=== PATIENT | male | born 1985 | race Caucasian/White ===

== ENCOUNTER 2021-11-26 09:09 | Inpatient (IN) | payer MEDICAID, SELFPAY ==
--- NOTE | ~2021-11-26 | CT_ITS ---
EXAMINATION: CT ABDOMEN AND PELVIS WITHOUT CONTRAST CLINICAL INFORMATION: 36-year-old male with abdominal pain and distention. COMPARISON: Abdomen ultrasound from 11/26/2021. TECHNIQUE: Multidetector volumetric imaging was performed from the superior aspect of the liver through the pubic symphysis. Sagittal and coronal reformatted images were obtained on the technologist's workstation. This CT examination was performed using dose optimization techniques as appropriate, variously including the following: *Automated exposure control *Adjustment of mA and/or kV according to patient size (this includes techniques or standardized protocols for targeted exams where dose is matched to indication/reason for exam; i.e. extremities or head) *Use of iterative reconstruction technique DLP: 718 mGy-cm FINDINGS: LUNG BASES: Unremarkable. LIVER: Hepatomegaly. The right hepatic lobe is approximately 24 cm in craniocaudal dimension. Liver parenchyma is diffusely hypodense, consistent with steatohepatitis. Recommend correlation with liver function tests. No focal liver lesion. GALLBLADDER AND BILIARY TREE: Gallbladder is physiologically distended and without radiopaque stones. No dilated bile ducts. PANCREAS: Normal. No edema, pancreatic ductal dilatation or mass. SPLEEN: Normal. ADRENAL GLANDS: Normal. KIDNEYS AND URETERS: The kidneys have normal size and cortical thickness. No perinephric edema or fluid collection. No urolithiasis or hydroureteronephrosis. BLADDER: Normal. No calculi or wall thickening. BOWEL AND PERITONEUM: No dilated bowel loops. The colon is suboptimally evaluated due to lack of distention. Mild diffuse edema of the colonic wall is suspected. Moderate volume of free fluid is present in the abdomen and pelvis. No pneumoperitoneum. ABDOMINAL WALL: Mild edema of subcutaneous tissues of the abdominal wall. Minimal protrusion of fat into the umbilicus. VASCULATURE: Minimal atherosclerotic calcification of the abdominal aorta without aneurysm. Inferior vena cava is normal. Splenic, portal and hepatic veins are unremarkable. No venous thrombosis. LYMPH NODES: A common hepatic lymph node is slightly enlarged, 1 cm short axis dimension, likely reactive to the hepatic disease. No pathologic sized retroperitoneal, iliac or inguinal lymph nodes. PELVIC VISCERA: Prostate gland is unremarkable. SKELETAL: No suspicious bone lesions. CT/CT abdomen pelvis wo con IMPRESSION: * Hepatomegaly, steatohepatitis and anasarca with moderate volume of ascites. * Mild edematous thickening of the colonic wall is suspected in this patient with liver disease, and the suspected wall thickening could be secondary to hypoproteinemia/anasarca. The differential diagnosis might include portal hypertension associated colopathy, but portal veins are not dilated and there are no appreciable varices to significantly raise suspicion for underlying portal hypertension.
--- NOTE | ~2021-11-26 | US_ITS ---
EXAMINATION: US ABDOMEN LIMITED CLINICAL INFORMATION: Abdominal distention and pain.. COMPARISON: None TECHNIQUE: Real-time imaging of the abdomen evaluating for ascites. US/US abdomen limited FINDINGS/IMPRESSION: Minimal amount of ascites noted within the right lower quadrant with trace ascites noted within otherwise abdominal quadrants. There is no safe window to perform a paracentesis.
[2021-11-26 09:16] VITALS: BP 146/85; PULSE 97; RESP 18; TEMP 36.6; O2SAT 98; BMI 30.1
[2021-11-26 09:59] LABS: INTERNATIONAL NORM RATIO 1.2 (0.9-1.1); Prothrombin Time 13.3 SEC (10.0-13.1)
[2021-11-26 10:00] LABS: Ammonia 55 umol/L (13-55)
--- NOTE | 2021-11-26 10:02 | ED.ABDPAIN ---
HPI - Abdominal Pain General Chief Complaint: Abdominal Pain Stated Complaint: abd swelling and pain Time Seen by Provider: 11/26/21 09:34 Source: patient Mode of arrival: ambulatory Limitations: no limitations History of Present Illness HPI narrative: patient presents emergency department for evaluation of abdominal pain and distension. He states this is been ongoing for 2 weeks but significantly worse today. He has associated nausea and vomiting. He states he has not had any solid oral intake in the past 60 days. He additionally has associated diarrhea without blood and not black in color, states it is just water . He states he is a daily alcohol drinker typically drinking 15-20 nips a day, yesterday was only able to drink 3 nips due to the pain. He does endorse a history of withdrawal seizures. He states that 1 month ago he was seen at [facility] due to bilateral lower extremity edema, states he received Lasix IV while in the emergency department and was told it was due to my liver . he does not have a primary care provider and has had no further follow-up. States that the swelling has actually significantly improved. denies chest pain, palpitations, shortness of breath, difficulty breathing, dysuria, inability to urinate, numbness or tingling of the extremities. Related Data Home Medications Medication Instructions Recorded Confirmed methadone 10 mg/mL oral 132 mg PO DAILY 11/26/21 concentrate (Methadose) Allergies Allergy/AdvReac Type Severity Reaction Status Date / Time No Known Allergies Allergy Verified 11/26/21 09:46 Review of Systems Review of Systems Constitutional : No Weight loss, No Fever, No Chills ENT/Mouth :? No sore throat, No Rhinorrhea Eyes: No Swelling, No Redness Cardiovascular : No Chest Pain, No SOB, Positive Edema Respiratory : No Cough, No Sputum, No Wheezing Gastrointestinal : Positive Nausea, Positive Vomiting, positive Diarrhea, positive abdominal pain, No Hematochezia, No Melena Genitourinary : No Dysuria, No Urinary Frequency, No Hematuria, No Urgency? Musculoskeletal : No joint pain, No Myalgias, No Joint Swelling Skin : No Skin Lesions, No rash Neuro : No Weakness, No Numbness, No Dizziness, No Headache Psych : No Anxiety/Panic, No Depression Heme/Lymph: No Bruising, No Lymphadenopathy Endocrine : No Polyuria, No Polydipsia Yes all other systems are reviewed and are negative [facility] Past Medical History Attestation statement: The following information was validated with the patient. Source: old records reviewed Social History Social History (Updated 11/26/21 @ 17:08 by Victor Manuel Castillo MD) Patient Tobacco Use Status: Current everyday Tobacco user Advance Directives: No Advance Directives Information Provided: No Physical Exam ED Vital Signs: Vital Signs - 24 hr 11/26/21 09:16 11/26/21 11:30 11/26/21 16:00 Temperature 98 F 98.7 F Pulse Rate 97 87 96 Respiratory Rate 18 16 16 Blood Pressure 146/85 H 135/72 143/94 H Pulse Oximetry 98 95 94 Oxygen Delivery Method Room Air Room Air Room Air BMI result Body Mass Index 30.1 Appearance: Alert.?Oriented to person, place and time. No acute distress.?Normal affect. Eyes: Pupils equal, round and reactive to light. sclera mildly icterus? ENT: Pharynx normal.?? Neck: Normal inspection.? Neck supple.?? CVS: Heart sounds normal. Normal heart rate and rhythm.? Pulses normal.?? Respiratory: No respiratory distress.? Lung sounds clear to auscultation bilaterally?? Abdomen: distended, tender upon palpation. hypoactive bowel sounds. No pulsatile mass.?? Skin: Skin warm and dry.? Normal skin color.? no jaundice? Extremities: 2+ bilateral lower extremity edema.? No calf ttp? Neuro: Moves all extremities spontaneously. Sensation intact bilaterally. CN II-XII intact. No focal neuro deficits. Ambulates with normal steady gait. Course Course Course Narrative: Patient is a 36-year-old male with a past medical history of alcohol abuse, Reported family history of hemochromatosis, presents emergency department today for evaluation of pain distension. Has recently been seen at another hospital approximately 1 month ago for lower extremity edema thought to be secondary to his liver. Working on obtaining records at time. patient appears uncomfortable, abdominal exam significant distension tenderness upon palpation, concerning for ascites. Equal bilateral lower extremity edema reportedly improved per patient, not consistent with cellulitis low suspicion for DVT, Wells negative. will obtain CIWA Score given daily alcohol consumption, Lorazepam 2 mg p.o. for withdrawal symptoms, obtain CBC, CMP, lipase, ammonia, ethanol level, coags, magnesium level, and plan for ultrasound paracentesis Reevaluation(s) Reevaluation #1: Critical magnesium 1.3, patient to receive 2g IV. electrolytes otherwise unremarkable. transaminases are elevated with total bilirubin 4.3 indirect bilirubin 3.1. mild elevation in PT/INR. Time: 10:15 Reevaluation #2: EKG reveals sinus rhythm with PACs and significant QT prolongation QTC is 588. Magnesium are to being replaced at this time, potassium was 3.3 therefore will order total potassium 20 mEq IV and 20 mEq is p.o. patient currently on cardiac rehabilitation specialist. Time: 11:52 Reevaluation #3: Abdominal ultrasound reveals a minimal amount of ascites to the right lower quadrant no safe window to perform paracentesis. CT of the abdomen pending at this time. Once potassium is replaced will obtain repeat lytes and EKG at that time for re-evaluation. Additional Reevaluation(s): CT reveals hepatomegaly, steatohepatitis, and moderate volume ascites. Repeat labs are pending at this time. Repeat EKG continues to reveals sinus rhythm with PACs prolonged QT persists however it is improved currently 517. Hospitalist Dr. Castillo at bedside with patient, patient willing to stay for admission to medicine service. MDM - Abdominal Pain Medical Records Attestation: I reviewed the patient's medical records. Lab Data Attestation: I reviewed the patient's lab results. Result diagrams: 11/26/21 10:49 11/26/21 09:41 Labs: Lab Results 11/26/21 11/26/21 11/26/21 Range/Units 09:41 09:41 09:41 WBC (4.8-10.8) X10*3/uL RBC (4.60-5.80) X10*6/uL Hgb (14.0-18.0) g/dl Hct (42.0-52.0) % MCV (80.0-98.0) fL MCH (27.0-33.0) pg MCHC (31.0-36.0) g/dl RDW (11.0-16.0) % Plt Count (160-400) X10*3/uL MPV Immature Gran % (Auto) (0.0-0.4) % Neut % (Auto) (45-73) % Lymph % (Auto) (20-40) % [place] % (Auto) (2-11) % Eos % (Auto) (0-4) % Baso % (Auto) (0-2) % Lymph # (Auto) (1.2-4.9) X10*3/uL [place] # (Auto) (0.1-1.2) X10*3/uL Eos # (Auto) (0.0-0.4) X10*3/uL Baso # (Auto) (0.0-0.2) X10*3/uL Abs Immat Gran (auto) (0.00-0.03) X10*3/uL Absolute Neuts (auto) (2.0-8.3) x10*3/uL Absolute Nucleated RBC (0.0-0.012) X10*3/uL Nucleated RBC % (auto) (0.0-0.2) /100WBC PT 13.3 H (10.0-13.1) SEC INR 1.2 H (0.9-1.1) Sodium 138 (135-145) mmol/L Potassium 3.3 (3.3-5.1) mmol/L Chloride 94 L (96-108) mmol/L Carbon Dioxide 28 (22-29) mmol/L Anion Gap 19 (12-20) BUN 2 L (9-16) mg/dL Creatinine 0.63 (0.5-1.4) mg/dL Estim Creat Clear Calc 184.1 Estimated GFR > 60 Random Glucose 108 (60-115) mg/dL Calcium 8.6 (8.4-10.2) mg/dL Magnesium 1.3 L* (1.6-2.6) mg/dL Total Bilirubin 4.3 H (0.0-1.0) mg/dL Direct Bilirubin 3.1 H (0.0-0.5) mg/dL AST 181 H (5-37) U/L ALT 42 H (0-40) U/L Alkaline Phosphatase 597 H (39-117) U/L Ammonia (13-55) umol/L B-Natriuretic Peptide 142 H (<100) pg/mL Total Protein 6.7 (6.5-8.0) g/dL Albumin 2.9 L (3.5-5.0) g/dL Lipase 42 (8-78) U/L Ethyl Alcohol 32 mg/dL 11/26/21 11/26/21 11/26/21 Range/Units 09:41 09:41 10:49 WBC 8.6 (4.8-10.8) X10*3/uL RBC 4.20 L (4.60-5.80) X10*6/uL Hgb 13.4 L (14.0-18.0) g/dl Hct 40.4 L (42.0-52.0) % MCV 96.2 (80.0-98.0) fL MCH 31.9 (27.0-33.0) pg MCHC 33.2 (31.0-36.0) g/dl RDW 17.7 H (11.0-16.0) % Plt Count 131 L (160-400) X10*3/uL MPV Not Reportable Immature Gran % (Auto) 0.3 (0.0-0.4) % Neut % (Auto) 83.8 H (45-73) % Lymph % (Auto) 9.4 L (20-40) % [place] % (Auto) 5.9 (2-11) % Eos % (Auto) 0.0 (0-4) % Baso % (Auto) 0.6 (0-2) % Lymph # (Auto) 0.8 L (1.2-4.9) X10*3/uL [place] # (Auto) 0.5 (0.1-1.2) X10*3/uL Eos # (Auto) 0.0 (0.0-0.4) X10*3/uL Baso # (Auto) 0.1 (0.0-0.2) X10*3/uL Abs Immat Gran (auto) 0.03 (0.00-0.03) X10*3/uL Absolute Neuts (auto) 7.2 (2.0-8.3) x10*3/uL Absolute Nucleated RBC 0.000 (0.0-0.012) X10*3/uL Nucleated RBC % (auto) 0.0 (0.0-0.2) /100WBC PT (10.0-13.1) SEC INR (0.9-1.1) Sodium (135-145) mmol/L Potassium (3.3-5.1) mmol/L Chloride (96-108) mmol/L Carbon Dioxide (22-29) mmol/L Anion Gap (12-20) BUN (9-16) mg/dL Creatinine (0.5-1.4) mg/dL Estim Creat Clear Calc Estimated GFR Random Glucose (60-115) mg/dL Calcium (8.4-10.2) mg/dL Magnesium Cancelled (1.6-2.6) mg/dL Total Bilirubin (0.0-1.0) mg/dL Direct Bilirubin (0.0-0.5) mg/dL AST (5-37) U/L ALT (0-40) U/L Alkaline Phosphatase (39-117) U/L Ammonia 55 (13-55) umol/L B-Natriuretic Peptide (<100) pg/mL Total Protein (6.5-8.0) g/dL Albumin (3.5-5.0) g/dL Lipase (8-78) U/L Ethyl Alcohol Cancelled mg/dL Imaging Data US - abdomen: Radiologist's impression: US/US abdomen limited FINDINGS/IMPRESSION: Minimal amount of ascites noted within the right lower quadrant with trace ascites noted within otherwise abdominal quadrants. There is no safe window to perform a paracentesis. ? CT scan - abdomen: Radiologist's impression: CT/CT abdomen pelvis wo con IMPRESSION: *? Hepatomegaly, steatohepatitis and anasarca with moderate volume of ascites. *? Mild edematous thickening of the colonic wall is suspected in this patient with liver disease, and the suspected wall thickening could be secondary to hypoproteinemia/anasarca. The differential diagnosis might include portal hypertension associated colopathy, but portal veins are not dilated and there are no appreciable varices to significantly raise suspicion for underlying portal hypertension. ECG Data Attestation: I personally reviewed and interpreted this ECG as follows: ECG interpretation date: 11/26/21 Interpretation: Rate: 95 Rhythm:? sinus rhythm with PACs [place]:? normal Normal P waves.? Normal ANGELA.??.?? ST T wave :?? no ST elevation, no ST depression, no T-wave inversion qTC: prolonged/ 588 prior studies:? none available for review The study has been interpreted contemporaneously by me. Discharge Plan Discharge Clinical Impression: Anasarca, Alcohol dependence, Hepatomegaly, Elevated liver transaminase level, Hypomagnesemia Patient Disposition: Admitted As Inpatient
[2021-11-26 10:13] LABS: B Type Natriuretic Peptide 142 pg/mL (<100)
[2021-11-26 10:14] LABS: Alanine Aminotransferase 42 U/L (0-40); Albumin Level 2.9 g/dL (3.5-5.0); Alkaline Phosphatase 597 U/L (39-117); Anion Gap 19 (12-20); Aspartate Amino Transferase 181 U/L (5-37); Bilirubin Direct 3.1 mg/dL (0.0-0.5); Bilirubin Total 4.3 mg/dL (0.0-1.0); Blood Urea Nitrogen 2 mg/dL (9-16); Calcium 8.6 mg/dL (8.4-10.2); Carbon Dioxide 28 mmol/L (22-29); Chloride 94 mmol/L (96-108); Creatinine Clr Calc Pharmacy 184.1; Estimated Glomerular Filt Rate > 60; Ethanol 32 mg/dL; Glucose Random 108 mg/dL (60-115); Lipase 42 U/L (8-78); Magnesium 1.3 mg/dL (1.6-2.6); Potassium 3.3 mmol/L (3.3-5.1); Sodium 138 mmol/L (135-145); Total Protein 6.7 g/dL (6.5-8.0)
--- NOTE | 2021-11-26 10:15 | ECG_ITS ---
Test Reason : Abd. Pain Blood Pressure : / mmHG Vent. Rate : 095 BPM Atrial Rate : 095 BPM P-R Int : 160 ms QRS Dur : 088 ms QT Int : 468 ms P-R-T Axes : 056 066 067 degrees QTc Int : 588 ms Sinus rhythm with Premature atrial complexes with Aberrant conduction Prolonged QT Abnormal ECG No previous ECGs available Referred By: Dianne Paula Electronically Signed By:BRENDAN KIM
[2021-11-26] MEDS: Magnesium Sulfate/H2O 2 GM/50 ML PIGGYBACK IV (10:45)
[2021-11-26 11:01] LABS: MANUAL DIFF FLAG NO
[2021-11-26] MEDS: LORazepam 1 MG TABLET 2 MG PO (11:14)
[2021-11-26 11:15] LABS: Basophils Absolute Auto 0.1 X10*3/uL (0.0-0.2); Basophils Percent Auto 0.6 % (0-2); Hematocrit 40.4 % (42.0-52.0); Hemoglobin 13.4 g/dl (14.0-18.0); Imm Gran Abs Auto 0.03 X10*3/uL (0.00-0.03); Imm Gran Pct Auto 0.3 % (0.0-0.4); Lymphocytes Absolute Auto 0.8 X10*3/uL (1.2-4.9); Lymphocytes Percent Auto 9.4 % (20-40); Mean Corpuscular HGB Conc 33.2 g/dl (31.0-36.0); Mean Corpuscular Hemoglobin 31.9 pg (27.0-33.0); Mean Corpuscular Volume 96.2 fL (80.0-98.0); Monocytes Absolute Auto 0.5 X10*3/uL (0.1-1.2); Monocytes Percent Auto 5.9 % (2-11); Neutrophils Absolute Auto 7.2 x10*3/uL (2.0-8.3); Neutrophils Percent Auto 83.8 % (45-73); Platelet Count 131 X10*3/uL (160-400); Red Cell Distribution Width 17.7 % (11.0-16.0); White Blood Count 8.6 X10*3/uL (4.8-10.8)
[2021-11-26 11:30] VITALS: BP 135/72; PULSE 87; RESP 16; O2SAT 95
[2021-11-26] MEDS: Potassium Chloride/H20 10 MEQ/100 ML PIGGYBACK 100 MEQ IV ×2 (12:20→13:58)
[2021-11-26] MEDS: Potassium Chloride Packet 20 MEQ PACKET PO (12:20)
--- NOTE | 2021-11-26 13:35 | ECG_ITS ---
Test Reason : ABD PAIN Blood Pressure : / mmHG Vent. Rate : 096 BPM Atrial Rate : 096 BPM P-R Int : 158 ms QRS Dur : 086 ms QT Int : 410 ms P-R-T Axes : 051 064 036 degrees QTc Int : 517 ms Sinus rhythm with Premature atrial complexes with Aberrant conduction Prolonged QT Abnormal ECG When compared with ECG of 26-NOV-2021 11:31, QT has shortened Referred By: Dianne Paula Electronically Signed By:BRENDAN KIM
[2021-11-26 16:00] VITALS: BP 143/94; PULSE 96; RESP 16; TEMP 37.1; O2SAT 94
--- NOTE | 2021-11-26 16:11 | PC.NURSE ---
mag and potassium given, will ubtain repeat labs and ekg
--- NOTE | 2021-11-26 16:28 | PC.NURSE ---
DR MURPHY SAID NOT TO DRAW LABS ,BECAUSE ITS TOO SOON ,SHE WILL PUT ORDER FOR TOMORROW MORNING .
--- NOTE | 2021-11-26 17:01 | P.HPHOSP_ITS ---
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, presented to [facility] due to abdominal pain and distension of several months duration, but in last few days noted to have worsening abdominal pain localized to lower abdomen associated with nausea, vomiting, diarrhea and decreased by mouth intake as per patient he had 29 episodes of loose stools 2 days ago today he had 4 episodes loose watery no blood, he denies hematemesis he also complained of associated fever, chills patient has been admitted to [facility] and has visited [facility] ER few times in last several weeks but he left against medical advice since he felt phenobarbital was not taking care of his withdrawal symptoms, patient is very reluctant to stay in the hospital because he drinks 15-20 nips a day feels he needs higher dose of phenobarb, his last drink was yesterday, in the emergency room workup showed a potassium of 3.3, magnesium of 1.3 significantly elevated total bili and liver enzymes, a CT abdomen showed hepatomegaly, steatohepatitis and moderate volume ascites, this mild edematous thickening of the colonic wall likely related to anasarca portal veins are not dilated and no appreciable varices were noted , however an abdominal ultrasound showed minimal amount of ascites within the right lower quadrant with trace ascites otherwise there was no safe window to perform a paracentesis, patient receive IV magnesium, IV potassium in the emergency room and now being admitted to [facility] for alcohol withdrawal and alcoholic hepatitis. 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 CVS no chest pain, no palpitation respiratory no cough, no sputum production no urinary urgency, no frequency skin no rash musculoskeletal no pain Yes all other systems are reviewed and are negative PMFSH Pertinent family history: mother has hemochromatosis and hypertension dad had knee replacement and open heart surgery in his 70s Social History (Updated 11/26/21 @ 17:08 by Victor Manuel Castillo MD) Patient Tobacco Use Status: Current everyday Tobacco user Advance Directives: No Advance Directives Information Provided: No Meds Allergies Allergy/AdvReac Type Severity Reaction Status Date / Time No Known Allergies Allergy Verified 11/26/21 09:46 Active Medications: Current Medications Famotidine (Famotidine/Pf 20 Mg/2 Ml Vial) 20 mg IVPUSH BID [facility] Folic Acid (Folic Acid 1 Mg Tablet) 1 mg PO DAILY [facility] Melatonin (Melatonin 3 Mg Tablet) 6 mg PO BEDTIME PRN PRN Reason: Insomnia Morphine Sulfate (Morphine Sulfate 4 Mg/Ml Cartridge) 4 mg IVPUSH Q4H PRN; Protocol PRN Reason: Pain, Severe (Pain Scale 7-10) Ondansetron HCl (Ondansetron Hcl 4 Mg/2 Ml Vial) 4 mg IVPUSH Q8H PRN PRN Reason: Nausea and Vomiting Pharmacy Consult (Consult Rx Perform Med Rec) 1 each MISCELLANE ONCE PRN PRN Reason: Consult order Pharmacy Consult (Consult Rx Etoh Phenob Po Only) 1 each MISCELLANE ONCE PRN; Protocol PRN Reason: Consult order Sodium Chloride (0.9 % Sodium Chloride Flush 3 Ml Syringe) 3 ml IVFLUSH QSHIFT [facility] Thiamine HCl (Thiamine Hcl 100 Mg Tablet) 100 mg PO DAILY [facility] Home Medications Medication Instructions Recorded Confirmed Last Taken Type methadone 10 mg/mL oral 132 mg PO DAILY 11/26/21 Unknown History concentrate (Methadose) Physical Exam Vital Signs and Narrative: Vital Signs: Last Vital Signs Temp 98.7 F 11/26/21 16:00 Pulse 96 11/26/21 16:00 Resp 16 11/26/21 16:00 BP 143/94 H 11/26/21 16:00 Pulse Ox 94 11/26/21 16:00 O2 Del Method 11/26/21 16:00 BMI result Body Mass Index 30.1 Const: Other: General awake alert, anxious appearing, in no acute distress. HEENT PERRLA Neck supple no JVD. CVS regular rate rhythm, Respiratory lungs clear to auscultation, no respiratory distress, no wheeze, no rhonchi. Gastrointestinal abdomen distended, tenderness to palpation lower abdomen,bowel sounds audible, no guarding , no rigidity. Extremities hyperemia both lower legs, edema Neuro nonfocal no tremors Skin no rash psych appropriate affect Results Labs CBC and Chem 7: 11/26/21 10:49 11/26/21 09:41 Labs: Laboratory Results - last 24 hr 11/26/21 11/26/21 11/26/21 09:41 09:41 09:41 MCV MCH MCHC RDW Plt Count MPV Immature Gran % (Auto) Neut % (Auto) Lymph % (Auto) [place] % (Auto) Eos % (Auto) Baso % (Auto) Lymph # (Auto) [place] # (Auto) Eos # (Auto) Baso # (Auto) Abs Immat Gran (auto) Absolute Neuts (auto) Absolute Nucleated RBC Nucleated RBC % (auto) PT 13.3 H INR 1.2 H Anion Gap 19 Estim Creat Clear Calc 184.1 Estimated GFR > 60 Random Glucose 108 Calcium 8.6 Magnesium 1.3 L* Total Bilirubin 4.3 H Direct Bilirubin 3.1 H AST 181 H ALT 42 H Alkaline Phosphatase 597 H Ammonia B-Natriuretic Peptide 142 H Total Protein 6.7 Albumin 2.9 L Lipase 42 Ethyl Alcohol 32 11/26/21 11/26/21 11/26/21 09:41 09:41 10:49 MCV 96.2 MCH 31.9 MCHC 33.2 RDW 17.7 H Plt Count 131 L MPV Not Reportable Immature Gran % (Auto) 0.3 Neut % (Auto) 83.8 H Lymph % (Auto) 9.4 L [place] % (Auto) 5.9 Eos % (Auto) 0.0 Baso % (Auto) 0.6 Lymph # (Auto) 0.8 L [place] # (Auto) 0.5 Eos # (Auto) 0.0 Baso # (Auto) 0.1 Abs Immat Gran (auto) 0.03 Absolute Neuts (auto) 7.2 Absolute Nucleated RBC 0.000 Nucleated RBC % (auto) 0.0 PT INR Anion Gap Estim Creat Clear Calc Estimated GFR Random Glucose Calcium Magnesium Cancelled Total Bilirubin Direct Bilirubin AST ALT Alkaline Phosphatase Ammonia 55 B-Natriuretic Peptide Total Protein Albumin Lipase Ethyl Alcohol Cancelled Imaging Radiologist's Impressions: Impressions Abdomen Ultrasound 11/26/21 10:57 FINDINGS/IMPRESSION: Minimal amount of ascites noted within the right lower quadrant with trace ascites noted within otherwise abdominal quadrants. There is no safe window to perform a paracentesis. Abdomen/Pelvis CT 11/26/21 12:15 IMPRESSION: * Hepatomegaly, steatohepatitis and anasarca with moderate volume of ascites. * Mild edematous thickening of the colonic wall is suspected in this patient with liver disease, and the suspected wall thickening could be secondary to hypoproteinemia/anasarca. The differential diagnosis might include portal hypertension associated colopathy, but portal veins are not dilated and there are no appreciable varices to significantly raise suspicion for underlying portal hypertension. Assessment and Plan (1) Anasarca: Status: Acute (2) Alcohol dependence: Status: Acute (3) Hepatomegaly: Status: Acute (4) Elevated liver transaminase level: Status: Acute (5) Hypomagnesemia: Status: Acute Plan 36-year-old gentleman with past medical history of substance abuse currently on methadone, history of tobacco use on nicotine patch, recently left a [facility] against medical advise, presented to [facility] due to several months of abdominal pain and distension that got worsened over last few days associated with fever chills nausea vomiting and diarrhea. , patient drinks heavily at home 15-20 nebs day alcohol abuse/withdrawal patient will be admitted to medical floor will place on phenobarb protocol, hydroxyzine for breakthrough anxiety and restlessness if continued to have persistent symptoms will consider Haldol will place on folic acid/ thiamine/ seizure precaution care team consult alcoholic hepatitis/ mild ascites elevated LFTs likely due to hepatitis will check hepatitis serology, obtain GI consultation family history of hemochromatosis will discuss further workup with GI follow labs supportive care /po Aldactone/ Pepcid for GI prophylaxis borderline low potassium since patient used friends Lasix attempted paracentesis but noted to have small ascites no fevers, no chills, follow clinical course, nausea /vomiting /diarrhea and abdominal pain likely related to hepatitis/viral gastroenteritis CT abdomen showed bowel wall thickening but likely related to anasarca follow clinical course supportive care with antiemetics analgesics hypomagnesemia will replace and follow mg tobacco use disorder continue nicotine patch counseling done history of heroin use on methadone, dose needs to be verified code status full DVT prophylaxis low risk in my clinical judgment patient need 2 night inpatient stay due to alcoholic hepatitis requiring further workup as well as alcohol abuse and withdrawal requiring high-dose phenobarb Quality Stroke Does the patient have a stroke diagnosis?: No VTE Prior VTE?: No VTE Risk Level:: Medical - low VTE Device Contraindication: Treatment Not Indicated VTE Drug Contraindication: Treatment Not Indicated
--- NOTE | 2021-11-26 17:13 | PHA.MEDREC ---
Pharmacy Consult ? Medication Reconciliation Pharmacy has completed the medication reconciliation. Patient states he only takes methadone at home. States his dose is 132mg and gets it from [facility] in [place].
[2021-11-26 17:50] VITALS: BP 150/99; PULSE 88; RESP 16; TEMP 36.6; O2SAT 99
--- NOTE | 2021-11-26 17:54 | PC.NURSE ---
pt seen by hospitalist for admission, waiting on bed assignment, aox4 amb with steady gait, tolerating po
[2021-11-26 18:14] LABS: COVID-19 Test Negative (Negative); IDNOW Serial# 16C4AD1C
[2021-11-26] MEDS: PHENobarbitaL sodium 130 MG/ML IM ONCE 292 MG IM (18:26)
[2021-11-26 19:54] VITALS: BP 154/87; PULSE 77; RESP 16; TEMP 36.9; O2SAT 98
[2021-11-26] MEDS: PHENobarbitaL sodium 130 MG/ML VIAL IM Q3Hx2 219 MG IM (21:25)
[2021-11-26] MEDS: Famotidine/PF 20 MG/2 ML VIAL IVPUSH (21:25)
[2021-11-26 23:01] VITALS: BP 140/108; PULSE 102; RESP 16; TEMP 37.2; O2SAT 99
--- NOTE | 2021-11-26 23:06 | PC.NURSE ---
PATIENT REFUSED TO CHANGE INTO HOSPITAL ATTIRE .
[2021-11-27] MEDS: 0.9 % Sodium Chloride Flush 3 ML SYRINGE IVFLUSH ×2 (01:00→08:08)
[2021-11-27] MEDS: PHENobarbitaL sodium 130 MG/ML VIAL IM Q3Hx2 219 MG IM (01:00)
[2021-11-27 04:00] VITALS: BP 133/79; PULSE 79; RESP 18; TEMP 36.6; O2SAT 96
[2021-11-27 05:43] VITALS: BMI 29.7
[2021-11-27 05:56] VITALS: BMI 29.7
[2021-11-27 06:47] LABS: Alanine Aminotransferase 32 U/L (0-40); Albumin Level 2.2 g/dL (3.5-5.0); Alkaline Phosphatase 471 U/L (39-117); Anion Gap 12 (12-20); Aspartate Amino Transferase 132 U/L (5-37); Bilirubin Direct 2.9 mg/dL (0.0-0.5); Bilirubin Total 4.4 mg/dL (0.0-1.0); Blood Urea Nitrogen 4 mg/dL (9-16); Carbon Dioxide 31 mmol/L (22-29); Chloride 96 mmol/L (96-108); Creatinine Clr Calc Pharmacy 182.9; Estimated Glomerular Filt Rate > 60; Glucose Random 76 mg/dL (60-115); Magnesium 1.5 mg/dL (1.6-2.6); Potassium 3.2 mmol/L (3.3-5.1); Sodium 136 mmol/L (135-145); Total Protein 5.3 g/dL (6.5-8.0)
[2021-11-27 07:42] VITALS: BP 142/91; PULSE 86; RESP 20; TEMP 37.1; O2SAT 94
[2021-11-27] MEDS: PHENobarbitaL 15 MG TABLET 45 MG PO (08:07)
[2021-11-27] MEDS: Famotidine/PF 20 MG/2 ML VIAL IVPUSH (08:08)
[2021-11-27] MEDS: Thiamine HCL 100 MG TABLET PO (08:08)
[2021-11-27] MEDS: Folic Acid 1 MG TABLET PO (08:08)
[2021-11-27] MEDS: Spironolactone 25 MG TABLET PO (08:08)
[2021-11-27] MEDS: Morphine Sulfate 4 MG/ML CARTRIDGE IVPUSH ×2 (08:34→13:56)
[2021-11-27 08:43] LABS: HBS Num1 0.41 mIU/mL (0-7.99); HBc Num1 0.13 S/CO (0.00-0.79); HBsAGNum1 0.19 S/CO (0.00-0.99); Hepatitis B Core Antibody Nonreactive (Nonreactive); Hepatitis B Surface Antigen Negative (Negative); ~HepC Num1 15.14 S/CO (0.00-0.79); ~Hepatitis B Surface Antibody NONREACTIVE (Nonreactive); ~Hepatitis C Antibody Reactive (Nonreactive)
--- NOTE | 2021-11-27 09:00 | HE.PHANOTE ---
RE METHADONE FORM RECEIVED FOR 132 MG
--- NOTE | 2021-11-27 09:33 | MHC.CM.PN ---
CM attempted to meet with Patient at bedside but his room door was closed and he is here with ETOH Withdrawal; CM spoke with Sister/HCP/Lian @ [phone].Patient lives in an apartment with his Mother and he obtains his Methadone from [facility] in [facility]. Home/resume said services vs further Care Team Interventions is the goal and CM has initiated and will follow for dc planning.Patient has a new PCP from [facility] that he has not seen yet. Patient has received NO covid vax. Patient has been requiring a walker . CM will follow.
[2021-11-27] MEDS: methADONE HCl 20 MG/2 ML ORAL.CONC 132 MG PO (10:45)
[2021-11-27] MEDS: Potassium Chloride ER 20 MEQ TAB.ER.PRT 40 MEQ PO (10:48)
[2021-11-27] MEDS: Magnesium Sulfate/H2O 2 GM/50 ML PIGGYBACK IV (11:10)
[2021-11-27 11:19] VITALS: BP 142/71; PULSE 107; RESP 20; TEMP 37.2; O2SAT 94
[2021-11-27] MEDS: Nicotine 21 MG PATCH.TD24 TRANSDERMA (12:53)
--- NOTE | 2021-11-27 15:22 | P.PNIM_ITS ---
Subjective Subjective Date of Service: 11/27/21 Interval History: Seen and examined this morning Follow-up for alcoholic hepatitis, abdominal pain Patient reports abdominal pain is improving. He denies any nausea or vomiting at this time. He is frustrated that he has not received his morning dose of methadone yet Review of Systems Review of Systems: Yes all other systems are reviewed and are negative Constitutional Constitutional: Denies chills and Denies fever(s) Cardiovascular Cardiovascular: Denies chest pain, Denies palpitations and Denies dyspnea Respiratory Respiratory: Denies cough and Denies dyspnea Gastrointestinal Gastrointestinal: Reports abdominal pain, Denies nausea and Denies vomiting Endocrine Endocrine: Denies palpitations Physical Exam Vital Signs: Vital Signs: Last Vital Signs Temp 99.0 F 11/27/21 11:19 Pulse 107 H 11/27/21 11:19 Resp 20 11/27/21 11:19 BP 142/71 H 11/27/21 11:19 Pulse Ox 94 11/27/21 11:19 O2 Del Method 11/27/21 11:19 O2 Flow Rate 2 11/27/21 04:00 BMI result Body Mass Index 29.7 Const: General: cooperative, no acute distress, alert and awake Nutritional Appearance: average body habitus Orientation/consciousness: patient oriented x3 Resp: Effort & Inspection: normal respiratory effort and able to speak in complete sentences Auscultation: clear to auscultation bilaterally Cardio: Rate: regular rate Heart sounds: S1 normal heart sound present and S2 normal heart sound present GI: Inspection: No distended Palpation (GI): Soft to palpation and nontender Neuro: General: patient oriented x3 and CN's II-XI intact bilaterally Extrem: General: Yes no pedal edema Objective Data Active Medications Famotidine (Famotidine/Pf 20 Mg/2 Ml Vial) 20 mg IVPUSH BID [facility] Last Admin: 11/27/21 08:08 Dose: 20 mg Documented By: MAGGY Folic Acid (Folic Acid 1 Mg Tablet) 1 mg PO DAILY [facility] Last Admin: 11/27/21 08:08 Dose: 1 mg Documented By: MAGGY Hydroxyzine HCl (Hydroxyzine Hcl 50 Mg Tablet) 50 mg PO Q6H PRN PRN Reason: anxiety/restlessness Melatonin (Melatonin 3 Mg Tablet) 6 mg PO BEDTIME PRN PRN Reason: Insomnia Methadone HCl (Methadone Hcl 20 Mg/2 Ml Oral.Conc) 132 mg PO DAILY [facility] Last Admin: 11/27/21 10:45 Dose: 132 mg Documented By: MAGGY Morphine Sulfate (Morphine Sulfate 4 Mg/Ml Cartridge) 4 mg IVPUSH Q4H PRN; Protocol PRN Reason: Pain, Severe (Pain Scale 7-10) Last Admin: 11/27/21 13:56 Dose: 4 mg Documented By: MAGGY Nicotine (Nicotine 21 Mg Patch.Td24) 21 mg TRANSDERMA DAILY [facility] Last Admin: 11/27/21 12:53 Dose: 21 mg Documented By: MAGGY Ondansetron HCl (Ondansetron Hcl 4 Mg/2 Ml Vial) 4 mg IVPUSH Q8H PRN PRN Reason: Nausea and Vomiting Pharmacy Consult (Consult Rx Perform Med Rec) 1 each MISCELLANE ONCE PRN PRN Reason: Consult order Pharmacy Consult (Consult Rx Etoh Phenob Po Only) 1 each MISCELLANE ONCE PRN; Protocol PRN Reason: Consult order Phenobarbital (Phenobarbital 15 Mg Tablet) 45 mg PO BID [facility] Stop: 11/28/21 21:01 Last Admin: 11/27/21 08:07 Dose: 45 mg Documented By: MAGGY Phenobarbital (Phenobarbital 30 Mg Tablet) 30 mg PO BID [facility] Stop: 11/30/21 21:01 Phenobarbital (Phenobarbital 15 Mg Tablet) 15 mg PO DAILY [facility] Stop: 12/02/21 09:01 Sodium Chloride (0.9 % Sodium Chloride Flush 3 Ml Syringe) [address] [facility] Last Admin: 11/27/21 08:08 Dose: 3 ml Documented By: MAGGY Spironolactone (Spironolactone 25 Mg Tablet) 25 mg PO DAILY [facility]; Protocol Last Admin: 11/27/21 08:08 Dose: 25 mg Documented By: MAGGY Thiamine HCl (Thiamine Hcl 100 Mg Tablet) 100 mg PO DAILY [facility] Last Admin: 11/27/21 08:08 Dose: 100 mg Documented By: MAGGY Labs CBC & Chem 7: 11/26/21 10:49 11/27/21 05:46 Labs: Laboratory Results - last 24 hr 11/26/21 11/27/21 11/27/21 17:48 05:46 05:46 Anion Gap 12 Estim Creat Clear Calc 182.9 Estimated GFR > 60 Random Glucose 76 Calcium 8.0 L D Magnesium 1.5 L Total Bilirubin 4.4 H Direct Bilirubin 2.9 H AST 132 H ALT 32 Alkaline Phosphatase 471 H D Total Protein 5.3 L D Albumin 2.2 L D COVID-19 (TIERNEY) Negative COVID-19 Clin Com See Note Hep Bs Antigen Negative Hep Bs Antibody NONREACTIVE Hep B Core Total Ab Nonreactive Hepatitis C Ab (EIA) Reactive H Assessment and Plan (1) Hypomagnesemia: Status: Acute (2) Alcohol dependence: Status: Acute (3) Elevated liver transaminase level: Status: Acute Plan 36-year-old gentleman with past medical history of substance abuse currently on methadone, history of tobacco use on nicotine patch, recently left a [facility] against medical advise, presented to [facility] due to several months of abdominal pain and distension that got worsened over last few days associated with fever chills nausea vomiting and diarrhea. , patient drinks heavily at home 15-20 nebs day alcohol use disorder/withdrawal drinks 15-20 nips daily; has been reportedly drinking since age 7 Continue phenobarb protocol, hydroxyzine for breakthrough anxiety/restlessness Continue folic acid/ thiamine/ seizure precautions care team consult pending alcoholic hepatitis/ mild ascites elevated LFTs likely due to hepatitis will check hepatitis serology family history of hemochromatosis will discuss further workup with GI follow labs supportive care /po Aldactone/ Pepcid for GI prophylaxis attempted paracentesis but noted to have small ascites no fevers, no chills, follow clinical course -GI consult pending -trend LFTs nausea /vomiting /diarrhea and abdominal pain likely related to hepatitis/viral gastroenteritis CT abdomen showed bowel wall thickening but likely related to anasarca follow clinical course supportive care with antiemetics analgesics Hypokalemia/ hypomagnesemia will replace and follow tobacco use disorder continue nicotine patch Smoking cessation advised Opiate use disorder Continue home dose of methadone code status full DVT prophylaxis low risk Attending-Dr. Wheat Patient will need ongoing inpatient hospitalization for management of alcohol- induced hepatitis/alcohol withdrawal Quality Stroke Does the patient have a stroke diagnosis?: No VTE Prior VTE?: No VTE Risk Level:: Medical - low VTE Device Contraindication: Treatment Not Indicated VTE Drug Contraindication: Treatment Not Indicated
--- NOTE | 2021-11-27 15:32 | P.CNGI_ITS ---
History of Present Illness Data of Consult Service Date: 11/27/21 Requesting physician: Victor Manuel Castillo Primary Care Provider: None Physician HPI Reason for consult: ETOH hepatitis 36 YM with hx of IV heroin use (currently on methadone) seen at [facility] on 11/26/21 with abdominal pain and distension of several months duration. Abdominal pain has been getting worse over the past few days and localized to lower abdomen. Pt notes nausea, vomiting, diarrhea with poor PO intake. Per patient he had 29 episodes of loose stools 2 days ago and had 4 episodes loose watery and non bloody stools. Pt denied hematemesis and complained of fever, chills Patient was previously admitted to [facility] and has visited [facility] ER a few times in last several weeks and left against medical advice since he felt phenobarbital was not taking care of his withdrawal symptoms, Patient is very reluctant to stay in the hospital because he drinks 15-20 nips a day feels he needs a higher dose of phenobarb, his last drink was yesterday, ER COURSE: Workup showed a potassium of 3.3, magnesium of 1.3 significantly elevated total bili and liver enzymes, Abdominal ultrasound showed minimal amount of ascites within the right lower quadrant with trace ascites otherwise there was no safe window to perform a paracentesis, Patient was treated with IV magnesium, IV potassium in the emergency room and was admitted to [facility] for alcohol withdrawal and alcoholic hepatitis. IMAGING STUDIES: 11/26/[address] SCAN SHOWED: ? Hepatomegaly, steatohepatitis and anasarca with moderate volume of ascites. *? Mild edematous thickening of the colonic wall is suspected in this patient with liver disease, and the suspected wall thickening could be secondary to hypoproteinemia/anasarca. The differential diagnosis might include portal hypertension associated colopathy, but portal veins are not dilated and there are no appreciable varices to significantly raise suspicion for underlying portal hypertension. Review of Systems Review of Systems: PC SUPPORT SPECIALIST no headache no dizziness CVS no chest pain, no palpitation respiratory no cough, no sputum production no urinary urgency, no frequency skin no rash musculoskeletal no pain Yes all other systems are reviewed and are negative [facility] Social History Social History (Updated 11/26/21 @ 17:08 by Victor Manuel Castillo MD) Household Members: Family Housing: Apartment Do you presently have visiting nurse or other home services: No Patient Tobacco Use Status: Current everyday Tobacco user Tobacco use type: Cigarette Cigarette Packs Per Day: 1.5 Cigarettes Per Day: 30.0 Years Smoked: 25 Smoked in Last 30 Days: Yes e-Cigarette/Vaping Use: Never Used Patient Interested in Nicotine Replacement: Yes Use of substances other than those prescribed or required for medical reasons: Yes Substance Use Type: Heroin Substance Use Frequency: Occasionally Last Used Substance Other:: couple weeks ago Currently Displaying Signs/Symptoms of Drug Intoxication Withdrawal: No Any prior treatment program specific to substance use: Yes Have you been hit, kicked, punched, or otherwise hurt by someone within the past year? If so, by whom?: No Do you feel safe in your current relationship?: No Is there a partner from a previous relationship who is making you feel unsafe now?: No Are you made to feel afraid or neglected: No Advance Directives: No Advance Directives Information Provided: No Do you have thoughts of harming others: None Do you have a plan to hurt others: No Plan Recently lost weight without trying: No Eating poorly because of decreased appetite: No Nutrition Risks: No Nutritional Risk Poor oral hygiene: No service: No Current occupational status: unemployed Meds Allergies Allergy/AdvReac Type Severity Reaction Status Date / Time No Known Allergies Allergy Verified 11/26/21 09:46 Active Medications: Current Medications Famotidine (Famotidine/Pf 20 Mg/2 Ml Vial) 20 mg IVPUSH BID [facility] Last Admin: 11/27/21 08:08 Dose: 20 mg Folic Acid (Folic Acid 1 Mg Tablet) 1 mg PO DAILY [facility] Last Admin: 11/27/21 08:08 Dose: 1 mg Hydroxyzine HCl (Hydroxyzine Hcl 50 Mg Tablet) 50 mg PO Q6H PRN PRN Reason: anxiety/restlessness Melatonin (Melatonin 3 Mg Tablet) 6 mg PO BEDTIME PRN PRN Reason: Insomnia Methadone HCl (Methadone Hcl 20 Mg/2 Ml Oral.Conc) 132 mg PO DAILY [facility] Last Admin: 11/27/21 10:45 Dose: 132 mg Morphine Sulfate (Morphine Sulfate 4 Mg/Ml Cartridge) 4 mg IVPUSH Q4H PRN; Pr otocol PRN Reason: Pain, Severe (Pain Scale 7-10) Last Admin: 11/27/21 13:56 Dose: 4 mg Nicotine (Nicotine 21 Mg Patch.Td24) 21 mg TRANSDERMA DAILY [facility] Last Admin: 11/27/21 12:53 Dose: 21 mg Ondansetron HCl (Ondansetron Hcl 4 Mg/2 Ml Vial) 4 mg IVPUSH Q8H PRN PRN Reason: Nausea and Vomiting Pharmacy Consult (Consult Rx Perform Med Rec) 1 each MISCELLANE ONCE PRN PRN Reason: Consult order Pharmacy Consult (Consult Rx Etoh Phenob Po Only) 1 each MISCELLANE ONCE PRN; Protocol PRN Reason: Consult order Phenobarbital (Phenobarbital 15 Mg Tablet) 45 mg PO BID [facility] Stop: 11/28/21 21:01 Last Admin: 11/27/21 08:07 Dose: 45 mg Phenobarbital (Phenobarbital 30 Mg Tablet) 30 mg PO BID [facility] Stop: 11/30/21 21:01 Phenobarbital (Phenobarbital 15 Mg Tablet) 15 mg PO DAILY [facility] Stop: 12/02/21 09:01 Sodium Chloride (0.9 % Sodium Chloride Flush 3 Ml Syringe) 3 ml IVFLUSH QSHIFT [facility] Last Admin: 11/27/21 08:08 Dose: 3 ml Spironolactone (Spironolactone 25 Mg Tablet) 25 mg PO DAILY [facility]; Protocol Last Admin: 11/27/21 08:08 Dose: 25 mg Thiamine HCl (Thiamine Hcl 100 Mg Tablet) 100 mg PO DAILY [facility] Last Admin: 11/27/21 08:08 Dose: 100 mg Home Medications Medication Instructions Recorded Confirmed Last Taken Type methadone 10 mg/mL oral 132 mg PO DAILY 11/26/21 11/27/21 Unknown History concentrate (Methadose) Physical Exam Vital Signs: Vital Signs: Last Vital Signs Temp 99.0 F 11/27/21 11:19 Pulse 107 H 11/27/21 11:19 Resp 20 11/27/21 11:19 BP 142/71 H 11/27/21 11:19 Pulse Ox 94 11/27/21 11:19 O2 Del Method 11/27/21 11:19 O2 Flow Rate 2 11/27/21 04:00 BMI result Body Mass Index 29.7 Const: General: no acute distress and ill appearing Nutritional Appearance: overweight Orientation/consciousness: patient oriented x3 Limitations: no limitations HEENT: Head: Yes normal to inspection Ears: hearing grossly normal bilaterally Mouth: Normal oral and palatal mucosa present Eyes: Sclerae: sclerae normal Pupils: Equal, round and reactive pupils present Neck: Neck: Yes normal visual inspection Chest: Chest palpation & inspection: normal inspection of the chest Resp: Effort & Inspection: normal respiratory effort Auscultation: clear to auscultation bilaterally Cardio: Palpation: normal PMI Rate: regular rate Rhythm: regular rhythm Heart sounds: S1 normal heart sound present, S2 normal heart sound present and no murmurs GI: Palpation (GI): Soft to palpation, nontender and No hepatosplenomegaly present Auscultation: normal bowel sounds Rectal Exam - Male: Yes deferred Skin: General skin exam: no rashes or lesions noted Neuro: General: patient oriented x3, gait normal and moves all extremities Cranial nerves: Yes Equal, round and reactive pupils present Psych: Appearance: grossly normal Mental Status: mental status grossly normal Results Labs 11/26/21 10:49 11/27/21 05:46 Labs: BMP 11/27/21 05:46 Sodium 136 Potassium 3.2 L Chloride 96 Carbon Dioxide 31 H BUN 4 L D Creatinine 0.63 Calcium 8.0 L D Liver Function 11/27/21 Range/Units 05:46 Total Bilirubin 4.4 H (0.0-1.0) mg/dL Direct Bilirubin 2.9 H (0.0-0.5) mg/dL AST 132 H (5-37) U/L ALT 32 (0-40) U/L Alkaline Phosphatase 471 H D (39-117) U/L Albumin 2.2 L D (3.5-5.0) g/dL Assessment and Plan (1) Hepatomegaly: Status: Acute (2) Elevated liver transaminase level: Status: Acute Plan 36 YM with hx of IV heroin use (currently on methadone) admitted to [facility] on 11/26/21 with abdominal pain and distension of several months duration. Pt notes nausea, vomiting, diarrhea with poor PO intake. His symptoms are likely due to ETOH related hepatitis Patient was previously admitted to [facility] and has visited [facility] ER a few times in last several weeks and left against medical advice since he felt phenobarbital was not taking care of his withdrawal symptoms, Patient is very reluctant to stay in the hospital because he drinks 15-20 nips a day feels he needs a higher dose of phenobarb, his last drink was yesterday, 11/26/[address] SCAN SHOWED: ? Hepatomegaly, steatohepatitis and anasarca with moderate volume of ascites. *? Mild edematous thickening of the colonic wall is suspected in this patient with liver disease, and the suspected wall thickening could be secondary to hypoproteinemia/anasarca. The differential diagnosis might include portal hypertension associated colopathy, but portal veins are not dilated and there are no appreciable varices to significantly raise suspicion for underlying portal hypertension. RECOMMENDATIONS: 1. Agree with IV fluids and CIWA protocol 2. Follow LFTs daily and hepatitis serologies. 3. Genetic testing for hemochromatosis with am labs since pt reports a FH of hemochromatosis Procedures Date of Service Date of Service: 11/27/21
[2021-11-27 16:00] VITALS: BP 142/68; PULSE 93; RESP 16; TEMP 36.4; O2SAT 97
--- NOTE | 2021-11-27 17:12 | PM.EVENT ---
Event Note Date of Service: 11/27/21 Event Note: Nurse message me that patient intended to leave the hospital against medical advice. Went to go see the patient, he was awake, alert and oriented. He understands that leaving the hospital at this time and continuing with alcohol use could result in worsening liver failure and . He understands and does not want to remain in the hospital under any condition. Final discharge diagnosis Alcohol use disorder/acute alcohol withdrawal Acute alcoholic hepatitis Ascites Hypokalemia/hypo magnesemia Opiate use disorder on methadone
--- NOTE | 2021-11-27 17:13 | PC.NURSE ---
Pt left hospital against medical advise, despite encouragement and education on risk of leaving . Hospitalist Jenna Gregg notified, came to bedside and educated pt on the risk. Pt. left unaccompanied with all his personal belongings. Stated that he will be taking the bus home. IV out, quality assurance monitor chassis off. AMA form and unaccompanied acknowledgement form signed by pt. Nursing supervisor gate services notified.
[2021-11-28 05:17] LABS: Hepatitis A Antibody IgM 0.18 Index (0-0.79); ~Hepatitis A Antibody IgM Nonreactive (Nonreactive)
[2021-12-01 14:07] LABS: HCV Log PCR 6.23 Log IU/mL (NOT DETECTED); HepC Viral Load 1680000 IU/mL (NOT DETECTED)
== END 2021-11-27 17:15 | disposition left against medical advice (07) | DRG 280 ==
LOC: HO.ED 16:37 → HO.EDOVER 17:25 → HO.IMC 21:42
PROVIDERS: Admitting Provider Hospitalist; Emergency Provider Emergency Medicine; Visit Provider Physician Assistant Medical
DX: K70.11 Alcoholic hepatitis with ascites (principal); E83.42 Hypomagnesemia; F11.20 Opioid dependence, uncomplicated; Z20.822 Contact with and (suspected) exposure to COVID-19; F10.239 Alcohol dependence with withdrawal, unspecified; F17.210 Nicotine dependence, cigarettes, uncomplicated; Z71.6 Tobacco abuse counseling; Y90.1 Blood alcohol level of 20-39 mg/100 ml; E87.6 Hypokalemia
CPT/HCPCS: 36415; 74176; 76705; 80048; 80076; 82077; 82140; 83690; 83735; 83880; 85025; 85610; 86704; 86706; 86709; 86803; 87340; 87522; 87635; 93005; 96365; 96366; 96367; 99285; J2270; J2560; J3475